=== PATIENT | female | born 2000 | race African-American/Black ===

== ENCOUNTER 2021-02-18 23:47 | Emergency (ER) | payer OTHER ==
[~2021-02-18] VITALS: Ht 154.9 cm; Wt 79.4 kg
[2021-02-19 00:52] LABS: ABSOLUTE NEUTROPHILS 3.5 thou/uL (1.4-8.2); BASOPHILS 0.8 % (0.0-2.0); EOSINOPHILS 0.4 % (0.0-3.0); HEMATOCRIT 36.7 % (37.0-47.0); HEMOGLOBIN 12.2 gm/dL (12.0-15.0); LYMPHOCYTES 27.7 % (24.0-44.0); MCHC 33.1 g/dL (28.0-37.0); MCV 87.6 fL (80.0-100.0); MONOCYTES 9.4 % (1.0-8.0); PLATELET COUNT 302 thou/uL (150-400); POLYS 61.7 % (36.0-66.0); RBC 4.19 mil/uL (4.20-5.00); RDW 12.8 % (10.5-14.5); WBC 5.7 thou/uL (4.0-11.0)
[2021-02-19 01:03] LABS: CALCIUM 8.9 mg/dL (8.5-10.1); CREATININE 0.8 mg/dL (0.6-1.0); POTASSIUM 3.4 mmol/L (3.5-5.1)
[2021-02-19 01:08] LABS: ALBUMIN 4.5 g/dL (3.4-5.0); TOTAL BILIRUBIN 0.8 mg/dL (0.2-1.0); TOTAL PROTEIN 8.7 g/dL (6.4-8.2)
[2021-02-19 01:08] LABS: AMP/METHAMP Negative (Negative); BARBITURATES Negative (Negative); BENZODIAZEPINES Negative (Negative); COCAINE Negative (Negative); METHADONE Negative (Negative); OPIATES Negative (Negative); PCP Negative (Negative)
[2021-02-19] MEDS ORDERED: ZOFRAN ODT4 MG PO (02:11)
[2021-02-19 05:32] VITALS: BP 120/48
== END 2021-02-19 05:52 | disposition home or self-care (01) ==
LOC: ER 23:47
PROVIDERS: Emergency Medicine
DX: F10.129 Alcohol abuse with intoxication, unspecified (principal); F12.10 Cannabis abuse, uncomplicated; R11.10 Vomiting, unspecified; Y90.9 Presence of alcohol in blood, level not specified

== ENCOUNTER 2021-07-07 14:32 | Emergency (ER) | payer OTHER ==
[~2021-07-07] VITALS: Ht 152.4 cm; Wt 70.3 kg
--- NOTE | ~2021-07-07 | EMS ---
[address] [address] EMS Patient Care Report Name: DANAY PLUMMER Room #: DEP GUCCI Santos#: [id number] Admission: 07/07/21 Attend Phys: Discharge: 07/07/21 Date of : [birth year] Report #: [id number] THIS REPORT FOR: //name// Report Transmitted: 07/08/2021 12:26 EMS Care Summary [place], [place]/[facility] Incident [id number] @ 07/07/2021 14:00 Incident [address] [place] [address] Patient DANAY PLUMMER Female, 21 Years 2000 Patient Address [address] [place] [address] Patient History Cardiac Murmur, Patient Allergies No known allergies, Patient Medications None Reported, Chief Complaint I vomited and I'm hot Disposition Transported No Lights/[place] Dispatch Reason Sick Person Transported To [facility] Narrative Called for a sick. Upon arrival, pt was GORE x 3 lying on the couch. She said she woke up this morning not feeling well, c/o fever, vomiting and some [address] [address] EMS Patient Care Report Name: DANAY PLUMMER Room #: DEP Tom#: [id number] Admission: 07/07/21 Attend Phys: Discharge: 07/07/21 Date of : [birth year] Report #: [id number] diarrhea. She requested transport to the hospital by an ambulance to find out what was going on. She walked to the ambulance, climbed in and sat down w/o incident. Vitals obtained and repeated. En route: no changes. RR to the ER. Arrived: pt taken to triage, pt care & report to ER staff. Initial Vitals @14:19P: 49,R: 16,BP: 124/72,Pain: 0/10,GCS: 15,SpO2: 99,Revised Trauma: 12, @14:16P: 50,R: 16,BP: 123/84,Pain: 0/10,GCS: 15,SpO2: 99,Revised Trauma: 12, Assessments @14:12MENTAL:Time Oriented,Place Oriented,Person Oriented,Event Oriented,SKIN:Hot,HEENT:LUNG SOUNDS:General: Diarrhea,General: Vomiting,ABDOMEN:General: Diarrhea,General: Vomiting,PELVIS//GI:EXTREMITIES:Left Arm: No Abnormalities,Right Arm: No Abnormalities,Left Leg: No Abnormalities,Right Leg: No Abnormalities,PULSE:Radial: 2+ Normal,NEURO:No Abnormalities, Impression Vomiting Procedures @14:12ALS AssessmentResponse: UnchangedSucceeded Timeline 13:58,Call Received 13:58,Dispatch Notified 14:00,Dispatched 14:02,En Route 14:10,On Scene 14:12,At Patient 14:12,ALS Assessment,Response: UnchangedSucceeded, 14:16,BP: 123/84 M,PULSE: 50,RR: 16 R,SPO2: 99 Ox,ETCO2: ,BG: ,PAIN: 0,GCS: 15, 14:16,Depart Scene 14:19,BP: 124/72 M,PULSE: 49,RR: 16 R,SPO2: 99 Ox,ETCO2: ,BG: ,PAIN: 0,GCS: 15, 14:29,At Destination 14:44,Call Closed Disclaimer v1.1 Copyright 2020 [employer] This EMS Care Summary contains data elements from the applicable legal record (which may be displayed differently). It is designed to provide pertinent information for the following purposes: continuity of care, clinical quality, and state data reporting. The complete legal record is available to ED staff and administrators of the receiving hospital in [employer] Patient Tracker. All data is provided "as is."
[~2021-07-07 14:32] MED LIST: ZOFRAN ODT4 MG PO
[2021-07-07 15:19] LABS: BASOPHILS 0.7 % (0.0-2.0); CALCIUM 8.8 mg/dL (8.5-10.1); CREATININE 0.9 mg/dL (0.6-1.0); EOSINOPHILS 0.2 % (0.0-3.0); HEMOGLOBIN 11.3 gm/dL (12.0-15.0); LYMPHOCYTES 16.7 % (24.0-44.0); MCHC 32.4 g/dL (28.0-37.0); MCV 86.4 fL (80.0-100.0); MONOCYTES 5.3 % (1.0-8.0); PLATELET COUNT 287 thou/uL (150-400); POLYS 77.1 % (36.0-66.0); POTASSIUM 3.7 mmol/L (3.5-5.1); RBC 4.05 mil/uL (4.20-5.00); RDW 13.4 % (10.5-14.5); WBC 5.1 thou/uL (4.0-11.0)
[2021-07-07 15:25] LABS: TOTAL BILIRUBIN 0.6 mg/dL (0.2-1.0); TOTAL PROTEIN 8.1 g/dL (6.4-8.2)
[2021-07-07 15:59] LABS: URINE BILIRUBIN NEGATIVE (Negative); URINE BLOOD 1+ (Negative); URINE CLARITY CLOUDY; URINE COLOR YELLOW; URINE GLUCOSE-RANDOM* NEGATIVE (Negative); URINE KETONES NEGATIVE (Negative); URINE NITRITE-REFLEX NEGATIVE (Negative); URINE PROTEIN (DIPSTICK) 1+ (Negative); URINE UROBILINOGEN 0.2 E.U./dl (0.2-1.0)
[2021-07-07 16:05] LABS: URINE LEUKOCYTES-REFLEX 3+ (Negative)
[2021-07-07 16:23] LABS: BACTERIA-REFLEX >30 Many /HPF (None Seen); SQUAMOUS 0-3 Few /LPF (0-3)
[2021-07-07 16:24] LABS: CASTS None Seen /LPF (None Seen); CRYSTALS None Seen /LPF (None Seen); URINE RBC 1-2 Rare /HPF (NONE SEEN); URINE WBC-REFLEX 6-15 Few /HPF (0-5)
[2021-07-07] MEDS ORDERED: ZOFRAN ODT4 MG PO (17:50)
[2021-07-07 17:58] VITALS: BP 118/58
[2021-07-13] MEDS ORDERED: MACROBID 100 M100 M1 PO (19:43)
--- NOTE | 2021-07-14 07:31 | NUR ---
SPOKE WITH PATIENT IN REGARDS TO URINE CULTURE RESULTS. INFORMED PATIENT THAT A PRESCRIPTION FOR MACROBID HAS BEEN SENT TO [facility] IN [place] AND NEEDS TO BE PICKED UP AND STARTED THIS MORNING. NO FURTHER QUESTIONS. STATES UNDERSTANDING.
== END 2021-07-07 18:00 | disposition home or self-care (01) ==
LOC: ER 14:32
PROVIDERS: Emergency Medicine; Physician Assistant
DX: R11.2 Nausea with vomiting, unspecified (principal); Z20.822 Contact with and (suspected) exposure to COVID-19; F12.90 Cannabis use, unspecified, uncomplicated